=== PATIENT | female | born 1995 | race Two or more races ===

== ENCOUNTER 2017-03-27 22:16 | Emergency (ER) | payer MEDICAID, OTHER ==
[~2017-03-27] VITALS: Ht 162.6 cm; Wt 66.7 kg
[2017-03-27 22:37] VITALS: BP 133/78
== END 2017-03-27 23:53 | disposition left against medical advice (07) ==
LOC: ER 22:16
DX: R21 Rash and other nonspecific skin eruption (principal); R60.0 Localized edema; Z53.21 Procedure and treatment not carried out due to patient leaving prior to being seen by health care provider